=== PATIENT | female | born 1980 | race Caucasian/White ===

== ENCOUNTER 2017-04-08 09:48 | Emergency (ER) | payer OTHER ==
[~2017-04-08] VITALS: Ht 170.2 cm; Wt 53.0 kg
[2017-04-08 10:08] VITALS: BP 166/98; PULSE 65; RESP 16; TEMP 98.7; O2SAT 99
[2017-04-08 10:10] VITALS: RESP 16; O2SAT 99
--- NOTE | 2017-04-08 10:44 | PD ---
HPI Chief Complaint: Chest Pain Time Seen by Provider: 10:03 Travel History International Travel<30 days: No Contact w/Intl Traveler<30days: No Traveled to known affect area: No History of Present Illness HPI Patient is a 36-year-old female otherwise healthy presents emergency department for 6 weeks worth of left-sided chest pain radiating to her left shoulder. Patient states worsened whenever she does pushups. States over the past week and a half and started to get worse. Denies any shortness of breath dizziness nausea or vomiting. States she's never had any problems or heart before, sometimes since her last checkup, not on any medications, nonsmoker, does have family history of heart attacks, mother had her first heart attack at the age of 55. Went to an urgent care facility today was referred to the emergency department for evaluation "because of her family history". Currently the patient is symptom-free. PFSH Past Medical History Tetanus Vaccination: > 5 Years Influenza Vaccination: No ?: Not LMP: 03/30/19 Past Surgical History Abdominal Surgery: Yes ( explor lap 2011) Section: Yes (x2) Family History Family Myocardial Infarction: Yes (mother) Social History Alcohol Use: Yes (occas. mix drinks) Tobacco Use: No (occas in early 20's) Substance Use: No Allergies-Medications (Allergen,Severity, Reaction): Coded Allergies: Sulfa (Sulfonamide Antibiotics) (Verified Allergy, Severe, 04/08/17) Reported Meds & Prescriptions Reported Meds & Active Scripts Active No Active Prescriptions or Reported Medications Review of Systems Except as stated in HPI: all other systems reviewed are Neg Physical Exam Narrative GENERAL: Well-developed well-nourished no obvious distress. Fit physique. SKIN: Focused skin assessment warm/dry. HEAD: Atraumatic. Normocephalic. EYES: Pupils equal and round. No scleral icterus. No injection or drainage. ENT: No nasal bleeding or discharge. Mucous membranes pink and moist. NECK: Trachea midline. No JVD. CARDIOVASCULAR: Regular rate and rhythm. No murmur appreciated. RESPIRATORY: No accessory muscle use. Clear to auscultation. Breath sounds equal bilaterally. GASTROINTESTINAL: Abdomen soft, non-tender, nondistended. Hepatic and splenic margins not palpable. MUSCULOSKELETAL: No obvious deformities. No clubbing. No cyanosis. No edema. Patient has pain with exertion of her pectoralis muscle on the left. No bony tenderness appreciated. Pulses motor and sensory intact distally in all 4 extremities. NEUROLOGICAL: Awake and alert. No obvious cranial nerve deficits. Motor grossly within normal limits. Normal speech. PSYCHIATRIC: Appropriate mood and affect; insight and judgment normal. Data Data Last Documented VS Vital Signs Date Time Temp Pulse Resp B/P (MAP) Pulse Ox O2 Delivery O2 Flow Rate FiO2 04/08/17 11:33 04/08/17 10:55 71 16 04/08/17 10:12 99 Room Air 04/08/17 10:08 98.7 Orders Orders Electrocardiogram (04/08/17 ) Basic Metabolic Panel (Bmp) (04/08/17 10:38) Complete Blood Count With Diff (04/08/17 10:38) Troponin I (04/08/17 10:38) Chest, Single Ap (04/08/17 10:38) Ecg Monitoring (04/08/17 10:38) Iv Access Insert/Monitor (04/08/17 10:38) Oximetry (04/08/17 10:38) Oxygen Administration (04/08/17 10:38) Sodium Chloride 0.9% Flush (Ns Flush) (04/08/17 10:45) Ed Discharge Order (04/08/17 11:16) Labs Laboratory Tests Test 04/08/17 10:15 White Blood Count 5.6 TH/MM3 Red Blood Count 4.98 MIL/MM3 Hemoglobin 14.1 GM/DL Hematocrit 43.6 % Mean Corpuscular Volume 87.7 FL Mean Corpuscular Hemoglobin 28.2 PG Mean Corpuscular Hemoglobin Concent 32.2 % Red Cell Distribution Width 13.2 % Platelet Count 199 TH/MM3 Mean Platelet Volume 8.4 FL Neutrophils (%) (Auto) 62.7 % Lymphocytes (%) (Auto) 27.1 % Monocytes (%) (Auto) 7.9 % Eosinophils (%) (Auto) 1.5 % Basophils (%) (Auto) 0.8 % Neutrophils # (Auto) 3.6 TH/MM3 Lymphocytes # (Auto) 1.5 TH/MM3 Monocytes # (Auto) 0.4 TH/MM3 Eosinophils # (Auto) 0.1 TH/MM3 Basophils # (Auto) 0.0 TH/MM3 CBC Comment DIFF FINAL Differential Comment Blood Urea Nitrogen 10 MG/DL Creatinine 0.71 MG/DL Random Glucose 82 MG/DL Calcium Level 8.8 MG/DL Sodium Level 140 MEQ/L Potassium Level 3.8 MEQ/L Chloride Level 106 MEQ/L Carbon Dioxide Level 27.2 MEQ/L Anion Gap 7 MEQ/L Estimat Glomerular Filtration Rate 94 ML/MIN Troponin I LESS THAN 0.02 NG/ML MDM Medical Decision Making Medical Screen Exam Complete: Yes Emergency Medical Condition: Yes Differential Diagnosis ACS highly unlikely, musculoskeletal chest wall pain, left shoulder pain. Narrative Course Patient roomed emerged permit, basic labs troponin and EKG are unremarkable, chest x-ray unremarkable. Her symptoms are highly musculoskeletal. Only risk factor is family history. She does need a regular checkup but is fairly healthy and exercises regularly. This time there is no indication further workup or inpatient management, discussed with her that she needs to follow-up with the [facility] or primary care provider for further evaluation. She is stable for discharge. Diagnosis Primary Impression: Shoulder pain, left Qualified Codes: M25.512 - Pain in left shoulder Referrals: [facility] Patient Instructions: General Instructions, RICE Therapy (GEN) Scripts No Active Prescriptions or Reported Meds Disposition: 01 DISCHARGE HOME Condition: Stable Teto Christensen MD Apr 08, 2017 10:44
[2017-04-08] MEDS ORDERED: SODIUM CHLORIDE 0.9% FLUSH 10 ML FLUSH IVF PRN (10:45)
[2017-04-08 10:48] LABS: AUTOMATED NEUTROPHIL # 3.6 TH/MM3 (1.8-7.7); BASOPHIL % 0.8 % (0.0-2.0); EOSINOPHIL # 0.1 TH/MM3 (0-0.4); EOSINOPHIL % 1.5 % (0.0-4.0); HEMATOCRIT 43.6 % (35.0-46.0); HEMO FLAGS DIFF FINAL; LYMPH % 27.1 % (9.0-44.0); LYMPHOCYTE # 1.5 TH/MM3 (1.0-4.8); MEAN CELL VOLUME 87.7 FL (80.0-100.0); MEAN CORPUSCULAR HEMOGLOBIN 28.2 PG (27.0-34.0); MEAN CORPUSCULAR HGB CONC 32.2 % (32.0-36.0); MONO % 7.9 % (0.0-8.0); NEUT % 62.7 % (16.0-70.0); PLATELET COUNT 199 TH/MM3 (150-450); RED BLOOD COUNT 4.98 MIL/MM3 (4.00-5.30); RED CELL DISTRIBUTION WIDTH 13.2 % (11.6-17.2); WHITE BLOOD COUNT 5.6 TH/MM3 (4.0-11.0)
[2017-04-08 10:55] VITALS: BP 133/78; PULSE 71; RESP 16
[2017-04-08 10:56] LABS: CHLORIDE 106 MEQ/L (98-107); POTASSIUM 3.8 MEQ/L (3.5-5.1); SODIUM (NA) 140 MEQ/L (136-145)
[2017-04-08 10:59] LABS: ANION GAP 7 MEQ/L (5-15); BICARBONATE 27.2 MEQ/L (21.0-32.0)
[2017-04-08 11:02] LABS: GLOMERULAR FILTRATION RATE 94 ML/MIN (>89)
--- NOTE | 2017-04-08 11:02 | RADRPT ---
EXAM DATE/TIME: 04/08/2017 10:49 [facility] COMPARISON: No previous studies available for comparison. INDICATIONS : Left side chest/shoulder pain x 6 weeks. MEDICAL HISTORY : None. SURGICAL HISTORY : section. ENCOUNTER: Initial ACUITY: 1 month PAIN SCORE: 3/10 LOCATION: Left chest FINDINGS: A single view of the chest demonstrates the lungs to be symmetrically aerated without evidence of mas s, infiltrate or effusion. The cardiomediastinal contours are unremarkable. Osseous structures are intact. CONCLUSION: 1. No acute cardiopulmonary disease. José Miguel Valentino MD on April 08, 2017 at 10:59 Board Certified Radiologist. This report was verified electronically.
[2017-04-08 11:03] LABS: BLOOD UREA NITROGEN 10 MG/DL (7-18)
--- NOTE | 2017-04-09 10:30 | EKG ---
Date Performed: 04/08/2017 Time Performed: 10:08:36 PTAGE: 36 years EKG: Sinus rhythm POSSIBLE RIGHT VENTRICULAR CONDUCTION DELAY BORDERLINE ECG NO PREVIOUS TRACING DOCTOR: Stefani Silva Interpretating Date/Time 04/09/2017 10:28:19
== END 2017-04-08 11:49 | disposition home or self-care (01) ==
LOC: PHED 09:48
DX: M25.512 Pain in left shoulder (principal); R94.31 Abnormal electrocardiogram [ECG] [EKG]
CPT/HCPCS: 71010; 80048; 84484; 85025; 93005; 99285